=== PATIENT | female | born 1950 | race Caucasian/White ===

== ENCOUNTER → 2016-03-22 19:36 | Outpatient (CLI) | payer BC | END | disposition home or self-care (01) | LOC: D.SLEEP 19:36 | DX: G47.30 Sleep apnea, unspecified (principal) ==

== ENCOUNTER → 2016-04-05 19:17 | Outpatient (CLI) | payer BC | END | disposition home or self-care (01) | LOC: D.SLEEP 19:17 | DX: G47.33 Obstructive sleep apnea (adult) (pediatric) (principal) ==

== ENCOUNTER 2018-08-21 08:00 | Day surgery (SDC) | payer MEDICARE, OTHER ==
[~2018-08-21] VITALS: Ht 175.3 cm; Wt 75.8 kg
[~2018-08-21 08:00] MED LIST: CARB PO; CLARITIN 10 MG10 MG PO; CO Q-10100 MG PO; CRESTOR40 MG PO; DIOVAN80 MG PO; FISH OIL 1,0001 CA1 PO; LEVO PO; OMEPRAZOLE40 MG PO; PRISTIQ100 MG PO; TAPAZOLE 5 MG TA5 MG PO; TOPROL XL25 MG PO; [UNRECOGNIZED DRUG - OTHER] PO
[2018-08-21] MEDS ORDERED: AMBIEN10 MG (10:52)
[2018-08-21] MEDS ORDERED: CELEBREX200 MG PO (10:53)
[2018-08-21] MEDS ORDERED: [UNRECOGNIZED DRUG - OTHER] PO (10:57)
[2018-08-21] MEDS ORDERED: ZEAXANTHIN (10:57)
[2018-08-21] MEDS ORDERED: LUTEIN (10:57)
[2018-08-21] MEDS ORDERED: CALCIUM 600 +1 EAC3 PO (10:58)
[2018-08-21] MEDS ORDERED: [UNRECOGNIZED DRUG - OTHER] (10:59)
[2018-08-21] MEDS ORDERED: MULTI-DAY VITAM1 TAB PO (11:00)
[2018-08-21] MEDS ORDERED: VITAMIN D31000 UNI2 PO (11:06)
[2018-08-21 11:10] VITALS: BP 119/74; Ht 175.3 cm; Wt 75.8 kg
[2018-08-21] MEDS ORDERED: HYDROCODON-ACE1 EAC7 PO (14:34)
== END 2018-08-21 15:55 | disposition home or self-care (01) ==
LOC: D.OPS 08:00
PROVIDERS: ATTEND Orthopaedic Surgery
DX: L72.0 Epidermal cyst (principal); Z01.812 Encounter for preprocedural laboratory examination